=== PATIENT | female | born 1975 | race American Indian/Alaskan Native ===

== ENCOUNTER 2020-01-25 23:40 | Emergency (ER) | payer SELFPAY ==
[2020-01-26 00:05] VITALS: BP 123/87
[2020-01-26] MEDS ORDERED: IBUPROFEN 800 MG TAB PO ONE (03:01)
[2020-01-26] MEDS ORDERED: BUTALB/ACETAMINOPHEN/CAFFEINE TAB PO ONE (03:01)
--- NOTE | 2020-01-26 03:06 | Emergency Department Report ---
ED General Adult HPI - General Chief complaint: Headache Stated complaint: HEAD PAIN(POST FALL) Time Seen by Provider: 01/26/20 02:53 Source: patient Mode of arrival: Ambulatory Limitations: No Limitations - History of Present Illness Initial comments: 44-year-old -[place] female patient presents with complaints of headache after a slip and fall injury at work yesterday morning. Patient denies any loss of consciousness, nausea/vomiting, numbness/tingling/weakness in her limbs, difficulty with speech/ambulation, confusion, or memory loss. She rates her headache as a 9/10 in severity and describes it as throbbing. She also admits to some intermittent blurry vision since the onset of her headache and some fatigue. She denies any prior medical history or blood thinners. Patient states she has not tried any OTC medications for her symptoms. -: Sudden - Related Data Previous Rx's Medication Instructions Recorded Last Taken Type Butalb/Acetamin/Caff 50-325-40 1 tab PO Q8HR PRN #10 tab 01/26/20 Unknown Rx [Fioricet 50-325-40] Ibuprofen [Motrin 800 MG tab] 800 mg PO ONCE PRN #15 tablet 01/26/20 Unknown Rx Allergies Allergy/AdvReac Type Severity Reaction Status Date / Time No Known Allergies Allergy Unverified 01/26/20 00:09 ED Review of Systems ROS: Stated complaint: HEAD PAIN(POST FALL) Other details as noted in HPI Constitutional: malaise. denies: chills, diaphoresis, fever, weakness Eyes: vision change. denies: eye pain Respiratory: denies: shortness of breath Cardiovascular: denies: chest pain Gastrointestinal: denies: abdominal pain, nausea, vomiting Musculoskeletal: denies: back pain, arthralgia Neurological: headache. denies: weakness, numbness, paresthesias, confusion, abnormal gait Hematological/Lymphatic: denies: easy bleeding, easy bruising ED Past Medical Hx - Past Medical History Previous Medical History?: Yes Hx Headaches / Migraines: Yes - Surgical History Past Surgical History?: Yes Additional Surgical History: Lap Band - Social History Smoking Status: Current Some Day Smoker - Medications Home Medications: Home Medications Medication Instructions Recorded Confirmed Last Taken Type Butalb/Acetamin/Caff 50-325-40 1 tab PO Q8HR PRN #10 tab 01/26/20 Unknown Rx [Fioricet 50-325-40] Ibuprofen [Motrin 800 MG tab] 800 mg PO ONCE PRN #15 tablet 01/26/20 Unknown Rx ED Physical Exam - General Limitations: No Limitations General appearance: alert, in no apparent distress - Head Head exam: Present: atraumatic, normocephalic - Expanded Head Exam Expanded Head exam: Absent: abrasion, contusion, hematoma, racoon eyes, william's sign - Eye Eye exam: Present: normal appearance, PERRL, EOMI. Absent: scleral icterus - Neck Neck exam: Present: normal inspection, full ROM. Absent: tenderness - Respiratory Respiratory exam: Present: normal lung sounds bilaterally. Absent: respiratory distress - Cardiovascular Cardiovascular Exam: Present: regular rate, normal rhythm, normal heart sounds - Extremities Exam Extremities exam: Present: normal inspection, full ROM - Back Exam Back exam: Present: normal inspection, full ROM. Absent: tenderness - Neurological Exam Neurological exam: Present: alert, oriented X3, CN II-XII intact, normal gait. Absent: motor sensory deficit - Expanded Neurological Exam Expanded Cerebellar function: Heel to [place]: Normal, [place]: Normal Sensory exam: Upper Extremity Light Touch: Normal, Lower Extremity Light Touch: Normal Motor strength exam: RUE: 5, LUE: 5, RLE: 5, LLE: 5 Best Eye Response (Tori): (4) open spontaneously Best Motor Response (Tori): (6) obeys commands Best Verbal Response (Tori): (5) oriented [place] Total: 15 - Psychiatric Psychiatric exam: Present: normal affect, normal mood - Skin Skin exam: Present: warm, dry, intact, normal color. Absent: rash, cyanosis, diaphoretic, ecchymosis ED Course Vital Signs 01/26/20 00:03 Temperature 98.3 F Pulse Rate 77 Respiratory 18 Rate Blood Pressure 123/87 O2 Sat by Pulse 99 Oximetry ED Medical Decision Making - Radiology Data Radiology results: report reviewed CT head/brain wo con INDICATION: Head injury, headache. TECHNIQUE: Routine CT head without contrast. All CT scans at this location are performed using CT dose reduction for ALARA by means of automated exposure control. COMPARISON: None. FINDINGS: BRAIN / INTRACRANIAL CONTENTS: No acute hemorrhage, brain edema, mass effect, or hydrocephalus. Normal hurd-white differentiation. No chronic infarct or focal atrophy. Normal brain volume and ventricular/sulcal size for age. CALVARIUM/SKULL BASE/CRANIOCERVICAL JUNCTION: No evidence of fracture. ORBITS: No significant abnormality of visualized orbits. SINUSES / MASTOIDS: No significant abnormality of visualized sinuses and mastoid air cells. ADDITIONAL FINDINGS: None. IMPRESSION: 1. No acute post-traumatic intracranial abnormality. - Medical Decision Making 44-year-old -[place] female patient presents with complaints of headache after a slip and fall injury at work yesterday morning. Patient denies any loss of consciousness, nausea/vomiting, numbness/tingling/weakness in her limbs, difficulty with speech/ambulation, confusion, or memory loss. She rates her headache as a 9/10 in severity and describes it as throbbing. She also admits to some intermittent blurry vision since the onset of her headache and some fatigue. She denies any prior medical history or blood thinners. Patient states she has not tried any OTC medications for her symptoms. [place] Coma Scale = 15. No neuro deficits noted on exam. Given the blurry vision and fatigue, CT head was ordered and is negative for any acute abnormal ities. Discussed possible concussion and importance of brain rest and follow-up with PCP in 2 days. Patient states her headache has resolved. She denies any current blurry vision her vitals are normal, she is well-appearing, and she is stable for discharge home. Strict return precautions were discussed in great detail with patient who verbalized understanding. Critical care attestation.: If time is entered above; I have spent that time in minutes in the direct care of this critically ill patient, excluding procedure time. ED Disposition Clinical Impression: Head injury without concussion or intracranial hemorrhage Qualifiers: Encounter type: initial encounter Qualified Code(s): S09.90XA - Unspecified injury of head, initial encounter Disposition: TO HOME OR SELFCARE Is pt being admited?: No Condition: Stable Instructions: Concussion (ED), Minor Head Injury (ED) Prescriptions: Butalb/Acetamin/Caff 50-325-40 [Fioricet 50-325-40] 1 tab PO Q8HR PRN #10 tab PRN Reason: Headache Ibuprofen [Motrin 800 MG tab] 800 mg PO ONCE PRN #15 tablet PRN Reason: Headache Referrals: DENISSE SANCHEZ MD [Staff Physician] - 3-5 Days [facility]I FARRAR MD [Primary Care Provider] - 2-3 Days
--- NOTE | 2020-01-26 03:30 | Cat Scan Report ---
CT head/brain wo con INDICATION: Head injury, headache. TECHNIQUE: Routine CT head without contrast. All CT scans at this location are performed using CT dose reduction for ALARA by means of automated exposure control. COMPARISON: None. FINDINGS: BRAIN / INTRACRANIAL CONTENTS: No acute hemorrhage, brain edema, mass effect, or hydrocephalus. Jeane l hurd-white differentiation. No chronic infarct or focal atrophy. Normal brain volume and ventricula r/sulcal size for age. CALVARIUM/SKULL BASE/CRANIOCERVICAL JUNCTION: No evidence of fracture. ORBITS: No significant abnormality of visualized orbits. SINUSES / MASTOIDS: No significant abnormality of visualized sinuses and mastoid air cells. ADDITIONAL FINDINGS: None. IMPRESSION: 1. No acute post-traumatic intracranial abnormality. Signer Name: Albert Walker MD Signed: 01/26/2020 3:25 AM Workstation Name: [id number]
== END 2020-01-26 04:45 | disposition home or self-care (01) ==
LOC: ED 23:40
DX: S09.90XA Unspecified injury of head, initial encounter (principal); F17.200 Nicotine dependence, unspecified, uncomplicated; Z98.890 Other specified postprocedural states; Z79.899 Other long term (current) drug therapy; W18.30XA Fall on same level, unspecified, initial encounter; Y93.89 Activity, other specified; Y92.69 Other specified industrial and construction area as the place of occurrence of the external cause; Y99.8 Other external cause status
CPT/HCPCS: 70450; 99283